=== PATIENT | female | born 1980 | race Caucasian/White ===

== ENCOUNTER 2017-11-20 00:22 | Emergency (ER) | payer SELFPAY ==
[~2017-11-20] VITALS: Ht 167.6 cm; Wt 84.0 kg
[2017-11-20] MEDS ORDERED: ACETAMINOPHEN 325MG TABLET PO PRN (01:00)
[2017-11-20 06:09] VITALS: BP 112/65
== END 2017-11-20 06:09 | disposition home or self-care (01) ==
LOC: ER 00:22 → CANBEDREQ 06:19
DX: O9A.312 Physical abuse complicating pregnancy, second trimester (principal); S00.83XA Contusion of other part of head, initial encounter; S10.93XA Contusion of unspecified part of neck, initial encounter; S50.01XA Contusion of right elbow, initial encounter; S90.511A Abrasion, right ankle, initial encounter; O46.8X2 Other antepartum hemorrhage, second trimester; R68.84 Jaw pain; Y07.03 Male partner, perpetrator of maltreatment and neglect; Z3A.17 17 weeks gestation of pregnancy; Y04.2XXA Assault by strike against or bumped into by another person, initial encounter; T71.9XXA Asphyxiation due to unspecified cause, initial encounter; Y93.89 Activity, other specified; O9A.212 Injury, poisoning and certain other consequences of external causes complicating pregnancy, second trimester; Y92.89 Other specified places as the place of occurrence of the external cause
CPT/HCPCS: 76805; 99284